=== PATIENT | male | born 1940 | race Caucasian/White ===

== ENCOUNTER → 2024-05-30 13:13 | Outpatient (CLI) | payer OTHER, SELFPAY | LOC: WC 13:18 | PROVIDERS: Family Provider Family Medicine; PCP Family Medicine; Referring Provider Family Medicine; Visit Provider Surgery | DX: E11.621 Type 2 diabetes mellitus with foot ulcer (principal); E11.42 Type 2 diabetes mellitus with diabetic polyneuropathy; L97.312 Non-pressure chronic ulcer of right ankle with fat layer exposed; L97.512 Non-pressure chronic ulcer of other part of right foot with fat layer exposed; L98.8 Other specified disorders of the skin and subcutaneous tissue; I25.10 Atherosclerotic heart disease of native coronary artery without angina pectoris; E66.9 Obesity, unspecified; Z68.35 Body mass index [BMI] 35.0-35.9, adult | CPT/HCPCS: 11042; 87070; 87075; 87077; 87147; 87186; 87205; 99203; 99213 ==

== ENCOUNTER → 2024-06-06 13:16 | Outpatient (CLI) | payer OTHER, SELFPAY ==
[2024-06-06 13:44] LABS: Add Manual Diff / Slide Review NO; Basophils Absolute Auto 0 /uL (0-100); Basophils Percent Auto 0.3 % (0-2); Eosinophils Absolute Auto 400 /uL (0-450); Eosinophils Percent Auto 4.1 % (2-4); Hematocrit 43.7 % (41-53); Hemoglobin 14.5 g/dL (13.5-17.5); Lymphocytes Absolute Auto 1200 /uL (1100-4500); Lymphocytes Percent Auto 12.1 % (25-40); Mean Corpuscular HGB Conc 33.3 % (30-36); Mean Corpuscular Hemoglobin 29.5 PG (26-34); Mean Corpuscular Volume 88.5 fL (80-100); Monocytes Absolute Auto 800 /uL (0-900); Monocytes Percent Auto 7.9 % (3-14); Neutrophils Absolute Auto 7600 /uL (1500-7000); Neutrophils Percent Auto 75.6 % (50-75); Platelet Count 255 X10^3/uL (150-400); Red Blood Cell Count 4.93 X10^6/uL (4.5-5.9); Red Cell Distribution Width 13.4 % (11.6-14.8); White Blood Cell Count 10.1 X10^3/uL (4.5-11.0)
[2024-06-06 13:58] LABS: Hemoglobin A1C% w Est Avg Glu 5.6 % (4.0-6.0)
[2024-06-06 14:09] LABS: Alanine Aminotransferase 22 IU/L (<50); Albumin 4.4 g/dL (3.5-5.0); Albumin Globulin Ratio 1.8 (1.0-2.8); Alkaline Phosphatase 73 U/L (38-126); Aspartate Aminotransferase 26 IU/L (17-59); BUN Creatinine Ratio 18.2 (6-22); Bilirubin Total 0.3 mg/dL (0.2-1.3); Blood Urea Nitrogen 20 mg/dL (9-20); C-Reactive Protein Quant 1.2 mg/dL (<1.0); Calcium 9.8 mg/dL (8.4-10.2); Carbon Dioxide 29 mmol/L (22-32); Chloride 104 mmol/L (98-107); Estimated Glomerular Filt Rate > 60 mL/min (>60); Globulin 2.5 g/dL (1.7-4.1); Glucose 90 mg/dL (80-110); HEMOLYSIS < 15 (0-50); Potassium 4.5 mmol/L (3.4-5.1); Sodium 140 mmol/L (137-145); Total Protein 6.9 g/dL (6.3-8.2)
[2024-06-06 14:13] LABS: Erythrocyte Sedimentation Rate 13 MM/HR (0-15)
== END ==
PROVIDERS: Family Provider Family Medicine; PCP Family Medicine; Referring Provider Surgery; Visit Provider Surgery
DX: L97.312 Non-pressure chronic ulcer of right ankle with fat layer exposed (principal); L89.622 Pressure ulcer of left heel, stage 2; L89.613 Pressure ulcer of right heel, stage 3; R60.0 Localized edema; L53.8 Other specified erythematous conditions; Z79.01 Long term (current) use of anticoagulants
CPT/HCPCS: 11042; 36415; 80053; 83036; 85025; 85651; 86140

== ENCOUNTER → 2024-06-13 13:20 | Outpatient (CLI) | payer OTHER, SELFPAY | PROVIDERS: Family Provider Family Medicine; PCP Family Medicine; Referring Provider Family Medicine; Visit Provider Surgery | DX: E11.621 Type 2 diabetes mellitus with foot ulcer (principal); L97.312 Non-pressure chronic ulcer of right ankle with fat layer exposed; L97.511 Non-pressure chronic ulcer of other part of right foot limited to breakdown of skin; E11.42 Type 2 diabetes mellitus with diabetic polyneuropathy; L53.8 Other specified erythematous conditions | CPT/HCPCS: 11042 ==

== ENCOUNTER → 2024-06-13 13:31 | Outpatient (CLI) | payer OTHER, SELFPAY ==
--- NOTE | 2024-06-13 13:32 | DI.US.S_ITS ---
PROCEDURE: US ARTERIAL DUPLEX LE RT INDICATIONS: non-healing ulcer to right lateral ankle and right 2nd toe TECHNIQUE: Color and pulse Doppler interrogation was performed of the right lower extremity arterial system, with image documentation. COMPARISON: None. FINDINGS: Common femoral artery: 169 cm/sec, with triphasic flow. Deep femoral artery: 133 cm/sec, with biphasic flow. Proximal superficial femoral artery: 112 cm/sec, with triphasic flow. Mid superficial femoral artery: 104 cm/sec, with triphasic flow. Distal superficial femoral artery: 88 cm/sec, with triphasic flow. Popliteal artery: 62 cm/sec, with triphasic flow. Posterior tibial artery: 78 cm/sec, with biphasic flow. Anterior tibial artery/dorsalis pedis: 75 cm/sec, with biphasic flow. Steven-scale imaging description: Moderate degree of calcified and noncalcified plaque throughout the right lower extremity arterial system. Diffuse calcified plaque throughout the tibial arteries. IMPRESSION: No hemodynamically significant stenosis involving the right lower extremity arterial system. Dictated by: Dylan Shine M.D. on 06/14/2024 at 11:12 Approved by: Dylan Shine M.D. on 06/14/2024 at 11:24
== END ==
PROVIDERS: Family Provider Family Medicine; PCP Family Medicine; Referring Provider Surgery; Visit Provider Surgery
DX: E11.621 Type 2 diabetes mellitus with foot ulcer (principal); L97.519 Non-pressure chronic ulcer of other part of right foot with unspecified severity
CPT/HCPCS: 93926

== ENCOUNTER → 2024-06-20 10:21 | Outpatient (CLI) | payer OTHER, SELFPAY | LOC: WC 10:22 | PROVIDERS: Family Provider Family Medicine; PCP Family Medicine; Referring Provider Family Medicine; Visit Provider Surgery | DX: E11.621 Type 2 diabetes mellitus with foot ulcer (principal); L97.312 Non-pressure chronic ulcer of right ankle with fat layer exposed; E11.42 Type 2 diabetes mellitus with diabetic polyneuropathy; L53.8 Other specified erythematous conditions; R60.0 Localized edema | CPT/HCPCS: 11042 ==

== ENCOUNTER → 2024-06-27 09:57 | Outpatient (CLI) | payer OTHER, SELFPAY | LOC: WC 09:57 | PROVIDERS: Family Provider Family Medicine; PCP Family Medicine; Referring Provider Family Medicine; Visit Provider Surgery | DX: E11.621 Type 2 diabetes mellitus with foot ulcer (principal); L97.312 Non-pressure chronic ulcer of right ankle with fat layer exposed; E11.42 Type 2 diabetes mellitus with diabetic polyneuropathy; L53.8 Other specified erythematous conditions; R60.0 Localized edema | CPT/HCPCS: 11042; 99213 ==

== ENCOUNTER → 2024-07-03 14:19 | Outpatient (CLI) | payer OTHER, SELFPAY ==
--- NOTE | 2024-07-03 14:20 | DI.NM.S_ITS ---
PROCEDURE: NM BONE 3 PHASE RADIOPHARMACEUTICAL: 21.1 mCi Tc-99m MDP IV. INDICATIONS: Eval for osteo. Diabetic ulcer of right lateral malleolus. TECHNIQUE: Multiple bone scintigrams were obtained after intravenous injection of Tc-99m MDP, including flow, blood pool, and delayed images centered to the region of interest. COMPARISON: None. FINDINGS: There is decreased radiotracer activity throughout the right foot compared to the left which may be secondary to poor perfusion. No focal areas of increased uptake concerning for osteomyelitis. IMPRESSION: 1. No focal areas of increased uptake concerning for osteomyelitis. 2. Overall, decreased radiotracer activity throughout the right foot compared to the left which may be secondary to poor perfusion. Dictated by: Xiang Ortiz M.D. on 07/04/2024 at 13:02 Approved by: Xiang Ortiz M.D. on 07/04/2024 at 13:05
== END ==
PROVIDERS: Family Provider Family Medicine; PCP Family Medicine; Referring Provider Surgery; Visit Provider Surgery
DX: L97.312 Non-pressure chronic ulcer of right ankle with fat layer exposed (principal)
CPT/HCPCS: 78315; A9503

== ENCOUNTER → 2024-07-04 10:33 | Outpatient (CLI) | payer OTHER, SELFPAY | PROVIDERS: Family Provider Family Medicine; PCP Family Medicine; Referring Provider Family Medicine; Visit Provider Surgery | DX: E11.621 Type 2 diabetes mellitus with foot ulcer (principal); L97.312 Non-pressure chronic ulcer of right ankle with fat layer exposed; E11.42 Type 2 diabetes mellitus with diabetic polyneuropathy; L98.8 Other specified disorders of the skin and subcutaneous tissue; L53.9 Erythematous condition, unspecified; R60.0 Localized edema; Z74.09 Other reduced mobility | CPT/HCPCS: 11042 ==

== ENCOUNTER → 2024-07-11 11:13 | Outpatient (CLI) | payer OTHER, SELFPAY | LOC: WC 11:14 | PROVIDERS: Family Provider Family Medicine; PCP Family Medicine; Referring Provider Family Medicine; Visit Provider Surgery | DX: E11.621 Type 2 diabetes mellitus with foot ulcer (principal); L97.312 Non-pressure chronic ulcer of right ankle with fat layer exposed; E11.40 Type 2 diabetes mellitus with diabetic neuropathy, unspecified; R60.0 Localized edema | CPT/HCPCS: 11042 ==

== ENCOUNTER → 2024-07-18 09:48 | Outpatient (CLI) | payer OTHER, SELFPAY | PROVIDERS: Family Provider Family Medicine; PCP Family Medicine; Referring Provider Family Medicine; Visit Provider Surgery | DX: E11.621 Type 2 diabetes mellitus with foot ulcer (principal); L97.312 Non-pressure chronic ulcer of right ankle with fat layer exposed; L53.8 Other specified erythematous conditions; R60.0 Localized edema; E11.40 Type 2 diabetes mellitus with diabetic neuropathy, unspecified | CPT/HCPCS: 11042 ==

== ENCOUNTER → 2024-07-25 10:10 | Outpatient (CLI) | payer OTHER, SELFPAY ==
--- NOTE | 2024-07-25 | OV.WND_ITS ---
PROGRESS NOTE DETAILS PATIENT NAME: TARIQ CURTIS PATIENT NUMBER: [id number] CLINICIAN: FRANCISCA MEHTA PATIENT DATE OF : 1940 PHYSICIAN / SURGICAL TERRITORY MANAGER: NESTOR FINCH PATIENT SUBJECTIVE CHIEF COMPLAINT THIS INFORMATION WAS OBTAINED FROM THE PATIENT. NO COMPLAINTS, WOUND RIGHT ANKLE ALLERGIES NO KNOWN ALLERGIES HPI THIS INFORMATION WAS OBTAINED FROM THE PATIENT. THE FOLLOWING HPI ELEMENTS WERE DOCUMENTED FOR THE PATIENT'S WOUND: LOCATION: R ANKLE DURATION: 04/29/24 CONTEXT: DFU THE PATIENT IS AN 84-YEAR-OLD MALE WITH DIABETES, OBESITY, CAD, PREVIOUS CVA, AND NEUROPATHY WHO RETURNS TODAY FOR FOLLOW UP OF AN ULCER ON THE LATERAL RIGHT ANKLE. THE PATIENT IS RECEIVING DRESSING CHANGES WITH HEAL WELL GEL EVERY OTHER DAY TO RIGHT ANKLE WITH A FELT SURROUND PAD AND HEEL PROTECTORS FOR PRESSURE OFFLOADING HOWEVER THE ULCER WAS LEFT OPEN TO AIR OVER THE PAST 24 HOURS. THE PATIENT HAS COMPLETED A COURSE OF LEVAQUIN FOLLOWED BY A COURSE OF BACTRIM. HE DENIES HAVING ANY PAIN NOR HAS HE HAD ANY FEVER OR CHILLS. HE CURRENTLY RESIDES AT A SENIOR LIVING FACILITY. THE PATIENT REPORTS A DECREASED APPETITE BUT HE IS TAKING PROTEIN SUPPLEMENTS. HE DENIES HAVING ANY OTHER RECENT CHANGES IN HIS OVERALL HEALTH. PATIENT HAS WEAKNESS IN HIS LOWER EXTREMITIES AND DIFFICULTY AMBULATING THEREFORE USES A WALKER. PAST HISTORY IS REMARKABLE FOR PREVIOUS SURGERY WITH PLACEMENT OF HARDWARE IN THE RIGHT FOOT 7 YEARS AGO. ABIS WERE 1.31. HEMOGLOBIN A1C FROM MARCH 04, 2024 WAS 6.1. X-RAY IMAGES WERE REVIEWED AND THERE IS NO HARDWARE OVER THE RIGHT LATERAL MALLEOLUS. ON EXAM TODAY THE ULCER HAS SLIGHTLY IMPROVED MEASUREMENTS BUT STILL HAS DRIED DRAINAGE, NO SIGN OF INFECTION. BONE SCAN DID NOT SHOW ANY EVIDENCE FOR OSTEOMYELITIS. LABS 07/03/24: BONE SCAN: NO FOCAL AREAS OF INCREASED UPTAKE CONCERNING FOR OSTEOMYELITIS. OVERALL, DECREASED RADIOTRACER ACTIVITY THROUGHOUT THE RIGHT FOOT COMPARED TO THE LEFT WHICH MAY BE SECONDARY TO POOR PERFUSION 06/13/24: ARTERIAL DOPPLER: NO HEMODYNAMICALLY SIGNIFICANT STENOSIS INVOLVING THE RIGHT LOWER EXTREMITY ARTERIAL SYSTEM. 06/06/24: WBC 10.1, HEMOGLOBIN 14.5, HCT 43.7, ELECTROLYTES UNREMARKABLE, GFR GREATER THAN 60, LFTS NORMAL, C-REACTIVE PROTEIN 1.2, HEMOGLOBIN A1C 5.6, ESR 13 05/30/24: CULTURE GREW MRSA 04/26/24: X-RAY RIGHT FOOT REVEALED EXTENSIVE POST SURGICAL CHANGES IN HINDFOOT JOINTS, MODERATE RIGHT FOOT JOINT OSTEOARTHRITIS, NO ACUTE FRACTURE OR DISLOCATION, NO GROSS HARDWARE LOOSENED THING OR FAILURE FAMILY HISTORY TARIQ CURTIS [id number] 1940 THIS INFORMATION WAS OBTAINED FROM THE PATIENT. CANCER- SIBLING DIABETES- SIBLING HYPERTENSION- MOTHER OTHER- FATHER: ALCOHOLISM SOCIAL HISTORY THIS INFORMATION WAS OBTAINED FROM THE PATIENT. FORMER SMOKER: 1 PACK PER DAY X27 YEARS ALCOHOL USE: SOBER X40 YEARS LIVES IN: [facility] MARITAL STATUS: MEDICAL HISTORY THIS INFORMATION WAS OBTAINED FROM THE PATIENT. PATIENT HAS A MEDICAL HISTORY OF: TYPE II DIABETES URINARY INCONTINENCE PARKINSONISM AORTIC ATHEROSCLEROSIS ATHEROSCLEROSIS OF [place] ARTERY OF EXTREMITY PSEUDOPHAKIA (BOTH EYES) SEVERE OBESITY OSTEOARTHRITIS DEGENERATIVE DISC DISEASE RECURRENT MAJOR DEPRESSIVE DISORDER CORONARY ARTERY DISEASE HYPERTENSION HYPERLIPIDEMIA CEREBROVASCULAR ACCIDENT CHAU'S PALSY SLEEP APNEA STROKE TRANSIENT ISCHEMIC ATTACK (TIA) ADDITIONAL INFORMATION DOES PATIENT HAVE A HISTORY OF CANCER? YES? COMPLETE ALL QUESTIONS.: NO SURGICAL HISTORY THIS INFORMATION WAS OBTAINED FROM THE PATIENT. PATIENT HAS A SURGICAL HISTORY OF: HARDWARE TO RIGHT ANKLE- CORONARY ARTERY BYPASS GRAFT (CABG)- SPINAL SURGERY- REVIEW OF SYSTEMS (ROS) THIS INFORMATION WAS OBTAINED FROM THE PATIENT. TARIQ CURTIS [id number] 1940 COMPLAINTS AND SYMPTOMS PATIENT COM PLAINS OF: CARDIOVASCULAR (CENTRAL): DYSPNEA ON EXERTION CO-MORBID CONDITIONS: CORONARY ARTERY DISEASE, DIABETES, NEUROPATHY , OBESITY MUSCULOSKELETAL: ASSISTIVE DEVICES ( WALKER), MUSCLE WEAKNESS NEUROLOGICAL: WEAKNESS PRIOR WOUND HISTORY: DRAINAGE, ERYTHEMA, PAIN PATIENT DENIES COM PLAINTS OR SY M PTOM S RELATED TO: CARDIOVASCULAR (CENTRAL): CHEST PAIN CONSTITUTIONAL SYMPTOMS (GENERAL HEALTH): CHILLS, FEVER, LOSS OF APPETITE, MARKED WEIGHT CHANGE PRIOR WOUND HISTORY: BLEEDING, MALODOR RESPIRATORY: COUGH, SHORTNESS OF BREATH OBJECTIVE VITALS HEIGHT/LENGTH: 70 IN (177.8 CM), WEIGHT: 236.7 LBS (107.59 KGS), BMI: 34, TEMPERATURE: 97.7 ?F (36.5 ?C), PULSE: 72 BPM, RESPIRATORY RATE: 16 BREATHS/MIN, BLOOD PRESSURE: 128/71 MMHG, PULSE OXIMETRY: 94 %. PHYSICAL EXAM CONSTITUTIONAL: VITAL SIGNS REVIEWED AND NOTED. GENERALIZED WEAKNESS. IN NO APPARENT DISTRESS. RESPIRATORY: EVEN RESPIRATIONS WITHOUT USE OF ACCESSORY MUSCLES. NO INTERCOASTAL RETRACTIONS NOTED. EVEN AND NON LABORED RESPIRATION. INTEGUMENTARY (HAIR, SKIN): NO ERYTHEMA. NO SWELLING OR TENDERNESS. SEE WOUND ASSESSMENT. SKIN WARM AND DRY. NO RASHES. NEUROLOGICAL: DECREASED LOWER EXTREMITY SENSATION. PSYCHIATRIC: ORIENTATION TO TIME, PLACE AND PERSON: NORMAL AFFECT WITH NORMAL THOUGHT PATTERN. ADDITIONAL INFORMATION THE PATIENT'S POTENTIAL TO HEAL IS: FAIR. LOWER EXTREMITY ASSESSMENT VASCULAR ASSESSMENT LEFT EXTREMITY COLORS, HAIR GROWTH, AND CONDITIONS: EXTREMITY COLOR: PIGMENTED HAIR GROWTH ON EXTREMITY: NO TEMPERATURE OF EXTREMITY: WARM CAPILARY REFILL: < 3 SECONDS ERYTHEMA: NO RIGHT EXTREMITY COLORS, HAIR GROWTH, AND CONDITIONS: EXTREMITY COLOR: PIGMENTED HAIR GROWTH ON EXTREMITY: NO TEMPERATURE OF EXTREMITY: WARM CAPILARY REFILL: < 3 SECONDS ERYTHEMA: NO WOUND ASSESSMENT(S) WOUND #1 RIGHT, LATERAL MALLEOLUS IS A CHRONIC JUNIOR GRADE 2 DIABETIC ULCER ACQUIRED ON 04/29/2024 TARIQ CURTIS [id number] 1940 AND HAS RECEIVED A STATUS OF NOT HEALED. INITIAL WOUND ENCOUNTER MEASUREMENTS ARE 0.3CM LENGTH X 0.2CM WIDTH X 0.1 CM DEPTH, WITH AN AREA OF 0.06 SQ CM AND A VOLUME OF 0.006 CUBIC CM.INITIAL WOUND ENCOUNTER PREVIOUS MEASUREMENTS FROM 07/18/2024 ARE 0.3CM LENGTH X 0.3CM WIDTH X 0.1CM DEPTH, WITH AN AREA OF 0.09 SQ CM AND A VOLUME OF 0.009 CUBIC CM. ADIPOSE IS EXPOSED. NO TUNNELING HAS BEEN NOTED. NO SINUS TRACT HAS BEEN NOTED. NO UNDERMINING HAS BEEN NOTED. THERE WAS NO DRAINAGE NOTED. THE PATIENT REPORTS A WOUND PAIN OF LEVEL 0/10. THE WOUND MARGIN IS ATTACHED WOUND BED HAS NO, GRANULATION, YES SLOUGH, NO ESCHAR, NO EPITHELIALIZATION. THE PERIWOUND SKIN EXHIBITED EDEMA, MACERATION AND ERYTHEMA. THE PERIWOUND SKIN DID NOT EXHIBIT BRAWNY INDURATION, EXCORIATION, INDURATION, CALLUS, CREPITUS, FLUCTUANCE, RASH, ATROPHIE MAGDALENO, CYANOSIS, ECCHYMOSIS, HEMOSIDEROSIS, PALLOR AND RUBOR. THE PERIWOUND SKIN WAS MOIST. THE PERIWOUND SKIN WAS NOT FRIABLE AND DRY/SCALY. THE TEMPERATURE OF THE PERIWOUND SKIN IS WNL. PERIWOUND SKIN DOES NOT EXHIBIT SIGNS OR SYMPTOMS OF INFECTION. LOCAL PULSE IS PALPABLE. 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 EXPOSED (ENCOUNTER DIAGNOSIS) E11.621 - TYPE 2 DIABETES MELLITUS WITH FOOT ULCER (ENCOUNTER DIAGNOSIS) E11.42 - TYPE 2 DIABETES MELLITUS WITH DIABETIC POLYNEUROPATHY GENERAL NOTES ULCER OVER RIGHT LATERAL MALLEOLUS APPEARS DECORATOR MANNEQUIN, MEASUREMENTS SLIGHTLY IMPROVED, DRIED DRAINAGE THE FOLLOWING FACTORS HAVE BEEN IDENTIFIED THAT MAY AFFECT WOUND HEALING: DEVITALIZED TISSUE BIOFILM INFECTION DIABETES NEUROPATHY POOR MOBILITY ADVANCED AGE PREVIOUS SURGERY WITH HARDWARE GOALS: REMOVED DEVITALIZED TISSUE REMOVE AND PREVENT BIOFILM TREAT INFECTION REDUCE PRESSURE WOUND CLOSURE PREVENT RECURRENCE PLAN: DEBRIDEMENT, CONTINUE DRESSING CHANGES WITH HEAL WELL GEL TO RIGHT ANKLE EVERY DAY WITH FELT SURROUND PAD FOR PRESSURE OFFLOADING, CONTINUE PROTEIN SUPPLEMENTATION, FOLLOW UP IN 2 WEEKS FOR A RECHECK. PROCEDURES WOUND #1 WOUND #1 (DIABETIC ULCER) IS LOCATED ON THE RIGHT, LATERAL MALLEOLUS. A SKIN/SUBCUTANEOUS TISSUE LEVEL SURGICAL DEBRIDEMENT WITH A TOTAL AREA DEBRIDED OF 0.06 SQ CM. WAS PERFORMED BY NESTOR FINCH MD. TARIQ CURTIS [id number] 1940 SUBCUTANEOUS WAS REMOVED ALONG WITH DEVITALIZED TISSUE: BIOFILM, EXUDATE AND SLOUGH. THE FOLLOWING INSTRUMENT(S) WERE USED: CURETTE. PAIN CONTROL WAS ACHIEVED USING EMLA LIDOCAINE/PRILOCAINE 2.5%/2.5%. A TIME OUT WAS CONDUCTED PRIOR TO THE START OF THE PROCEDURE. A MINIMAL AMOUNT OF BLEEDING WAS CONTROLLED WITH PRESSURE. THE PROCEDURE WAS TOLERATED WELL WITH A PAIN LEVEL OF 0 THROUGHOUT AND A PAIN LEVEL OF 0 FOLLOWING THE PROCEDURE. POST DEBRIDEMENT MEASUREMENTS: 0.3CM LENGTH X 0.2CM WIDTH X 0.2CM DEPTH; WITH AN AREA OF 0.06 SQ CM AND A VOLUME OF 0.012 CUBIC CM. ADDITIONAL INFORMATION MUSCLE FASCIA OR BONE REMOVED AND SENT TO PATHOLOGY?: NO PLAN WOUND ORDERS: WOUND #1 RIGHT, LATERAL MALLEOLUS HAND HYGIENE HAND HYGIENE - WASH HANDS BEFORE AND AFTER WOUND CARE. CALL THE WOUND CENTER AT [phone] IF YOU HAVE SIGNS OR SYMPTOMS OF INFECTION, FEVER CHILLS OR SHAKES, INCREASED DRAINAGE, INCREASED ODOR OR UNUSUAL REDNESS. AFTER WOUND CENTER HOURS PLEASE NOTIFY YOUR PCP OR GO TO THE EMERGENCY ROOM. CLEANSER CLEANSE WOUND WITH NORMAL SALINE CLEANSE WOUND AND DANISHA WOUND WITH A NON-CYTOTOXIC WOUND CLEANSER. - VASHE USED IN CLINIC. MAY SHOWER, LEAVE WOUND DRESSING INTACT. COVER WOUND DRESSING WITH A WATERPROOF BARRIER. KEEP DRESSING DRY. NO BATHS PLEASE. PROCEDURE / ANESTHETIC 2% TOPICAL LIDOCAINE TO WOUND BED PRIOR TO PROCEDURE, IN CLINIC ONLY. TOPICAL TREATMENTS APPLY ANTIBIOTIC/ANTIMICROBIAL OINTMENT/CREAM TO THE WOUND BED. - HEALWELL GEL TO WOUND BED, APPLY DAILY. DRESSING ORDERS APPLY DRESSING(S) AND SECURE WITH: - BORDERED GAUZE DRESSING (GENTAC USED IN CLINIC). FELT ADHESIVE PAD SURROUNDING ULCER, MAY STAY IN PLACE ALL WEEK IF NOT SOILED. EXTRA FELT SENT WITH PATIENT IF NEEDED. DRESSING CHANGE FREQUENCY CHANGE DRESSING DAILY. ADDITIONAL ORDERS: OFF-LOADING / PRESSURE RELIEF USE/WEAR WHEN IN BED: - FLOAT ANKLES IN BED. PT TO WEAR ANKLE PROTECTORS WHEN RESTING IN BED OR CHAIR. OTHER ORDER: - KEEP WEIGHT OFF RIGHT ANKLE. DIETARY TAKE VITAMIN C 1000MG BY MOUTH DAILY. TAKE ZINC 25MG BY MOUTH DAILY. FOLLOW A DIABETIC DIET. INCREASE THE PROTEIN IN YOUR DIET. - AIM FOR ADDITIONAL 30 GRAMS BETWEEN MEALS. OTHER ORDER: - KONRAD, GLUCERNA OR EQUIVALENT PROTEIN SUPPLEMENT. FOLLOW-UP APPOINTMENTS RETURN APPOINTMENT 2 WEEKS SCRIBING ATTESTATION I ATTEST, THE NURSE, THAT I SCRIBED THESE ORDERS FOR THE WOUND CARE PROVIDER. PROVIDER REVIEW AND ATTESTATION: REVIEWED AND EVALUATED LABS. REVIEWED HOSPITAL RECORDS. DISCUSSED THE PLAN OF CARE @ BEDSIDE WITH - THE PATIENT AND I AGREE AND ATTEST TO THE ABOVE INFORMATION PROVIDED FROM OTHER LICENSED PROFESSIONALS. PLAN OF CARE: 01. ENSURE/ESTABLISH OPTIMAL BLOOD FLOW : TARIQ CURTIS [id number] 1940 - COMPLETE LOWER EXTREMITY ASSESSMENT STATUS: CONTINUED DATE: 07/11/2024 - PERFORM NON-INVASIVE VASCULAR TESTING (I.E. NORA) AND DOCUMENT FINDINGS. CONSIDER REPEATING WHEN WOUND HEALING <40% AFTER 30 DAYS OF WOUND CARE. - ARTERIAL ULTRASOUND ORDERED 06/06/24 STATUS: COMPLETED DATE: 05/30/2024 02. ASSESS FOR/TREAT INFECTION : - EVALUATE FOR SIGNS AND SYMPTOMS OF INFECTION AND DOCUMENT FINDINGS. STATUS: CONTINUED DATE: 07/11/2024 - OBTAIN CULTURE AND SENSITIVITY (CANDS) OR TISSUE CULTURE WHEN INFECTION IS SUSPECTED. (NOTE:) CONSIDER REPEATING WHEN WOUND HEALING <40% AFTER 30 DAYS OF WOUND CARE. STATUS: COMPLETED DATE: 07/11/2024 03. DEBRIDE WEEKLY OR MORE OFTEN PRN : - EVALUATE PATIENT IN CENTER WEEKLY TO ASSESS WOUND BED AND MARGINS FOR NEED FOR DEBRIDEMENT. STATUS: CONTINUED DATE: 07/11/2024 04. OPTIMIZE GLUCOSE CONTROL AND NUTRITION : - ORDER/REVIEW PERTINENT LABS TO EVALUATE RENAL FUNCTION, GLUCOSE CONTROL, AND NUTRITIONAL STATUS. STATUS: CONTINUED DATE: 07/11/2024 05. OFFLOADING PLAN : - EVALUATE PLAN FOR OFFLOADING STATUS: CONTINUED DATE: 07/11/2024 - ADVISE PATIENT TO OFFLOAD THE FOOT ULCER. (I.E. HALF SHOE, SURGICAL SHOE, INSERT, CUSTOM SHOE, FELT AND FOAM, CAM WALKER, MULTIPODUS SPLINT, TOTAL CONTACT CAST, BI-VALVE CAST, POSTERIOR SPLINT). STATUS: CONTINUED DATE: 07/11/2024 - ORDER/REVIEW RADIOLOGY TESTS FOR SUSPECTED INFECTION, SIGNIFICANT FINDINGS, OR WHEN STRUCTURE PRESENT AND/OR ULCER LOCATED OVER BONY PROMINENCE. 06. OPTIMIZE HOST FACTORS: - ASSESS AND REVIEW PATIENT HISTORY FOR WOUND ETIOLOGY, CO-MORBID CONDITIONS, MEDICATION REGIME, AND SMOKING HISTORY. STATUS: CONTINUED DATE: 07/11/2024 07. DRESSING SELECTION : - CHOOSE TOPICAL TREATMENTS AND/OR DRESSING BASED ON WOUND TYPE AND APPEARANCE, PERIWOUND SKIN CONDITION, WOUND SIZE AND DEPTH, ANATOMIC LOCATION, VOLUME OF EXUDATE, EDEMA IN THE LOWER EXTREMITIES, AND RISK OR PRESENCE OF INFECTION. STATUS: CONTINUED DATE: 07/11/2024 08. ADVANCED MODALITIES : - RE-EVALUATE PLAN OF CARE IF NO EVIDENCE OF HEALING (40% IN 4 WEEKS). STATUS: CONTINUED DATE: 07/11/2024 09. FALL PREVENTION : - COMPLETE FALL ASSESSMENT. STATUS: COMPLETED DATE: 07/11/2024 10. PAIN MANAGEMENT : - COMPLETE PAIN ASSESSMENT STATUS: COMPLETED DATE: 07/11/2024 11. MEASURABLE GOALS FOR WOUND HEALING AND/OR HYPERBARIC OXYGEN THERAPY : - IMPLEMENT PROTOCOLS TO PROMOTE HEALING AND IMPEDE FURTHER INJURY STATUS: CONTINUED DATE: 07/11/2024 12. DURATION/FREQUENCY OF WOUND CARE VISITS : - 1X WEEKLY FOR 30 DAYS STATUS: CONTINUED DATE: 07/11/2024 TARIQ CURTIS [id number] 1940 ELECTRONIC SIGNATURE(S) SIGNED BY: DATE: NESTOR FINCH MD 07/25/2024 16:19:22 (PT) ENTERED BY: NESTOR FINCH MD ON 07/25/2024 16:03:39 (PT) TARIQ CURTIS [id number] 1940
== END ==
PROVIDERS: Family Provider Family Medicine; PCP Family Medicine; Referring Provider Family Medicine; Visit Provider Surgery
DX: L97.312 Non-pressure chronic ulcer of right ankle with fat layer exposed (principal); E11.621 Type 2 diabetes mellitus with foot ulcer; E11.42 Type 2 diabetes mellitus with diabetic polyneuropathy; L53.9 Erythematous condition, unspecified; R60.0 Localized edema; Z74.09 Other reduced mobility; I25.10 Atherosclerotic heart disease of native coronary artery without angina pectoris
CPT/HCPCS: 11042; 99213

== ENCOUNTER → 2024-08-08 10:43 | Outpatient (CLI) | payer OTHER, SELFPAY ==
--- NOTE | 2024-08-08 | OV.WND_ITS ---
PROGRESS NOTE DETAILS PATIENT NAME: TARIQ CURTIS PATIENT NUMBER: [id number] CLINICIAN: PATRICE UNGER R.N. PATIENT DATE OF : 1940 PHYSICIAN / AIRCRAFT STRUCTURAL REPAIRER: NESTOR FINCH PATIENT SUBJECTIVE CHIEF COMPLAINT THIS INFORMATION WAS OBTAINED FROM THE PATIENT. WOUND ON MY ANKLE. GENERAL NOTES RIGHT MALLEOLUS DIABETIC ULCER. ALLERGIES NO KNOWN ALLERGIES HPI THIS INFORMATION WAS OBTAINED FROM THE PATIENT. THE FOLLOWING HPI ELEMENTS WERE DOCUMENTED FOR THE PATIENT'S WOUND: LOCATION: R ANKLE DURATION: 04/29/24 CONTEXT: DFU THE PATIENT IS AN 84-YEAR-OLD MALE WITH DIABETES, OBESITY, CAD, PREVIOUS CVA, AND NEUROPATHY WHO RETURNS TODAY FOR FOLLOW UP OF AN ULCER ON THE LATERAL RIGHT ANKLE. THE PATIENT IS RECEIVING DRESSING CHANGES WITH HEAL WELL GEL EVERY OTHER DAY TO RIGHT ANKLE WITH A FELT SURROUND PAD AND HEEL PROTECTORS FOR PRESSURE OFFLOADING. THE PATIENT HAS COMPLETED A COURSE OF LEVAQUIN FOLLOWED BY A COURSE OF BACTRIM. HE DENIES HAVING ANY PAIN NOR HAS HE HAD ANY FEVER OR CHILLS. HE CURRENTLY RESIDES AT A [facility] FACILITY. THE PATIENT REPORTS A DECREASED APPETITE BUT HE IS TAKING PROTEIN SUPPLEMENTS. HE DENIES HAVING ANY OTHER RECENT CHANGES IN HIS OVERALL HEALTH. PATIENT HAS WEAKNESS IN HIS LOWER EXTREMITIES AND DIFFICULTY AMBULATING THEREFORE USES A WALKER. PAST HISTORY IS REMARKABLE FOR PREVIOUS SURGERY WITH PLACEMENT OF HARDWARE IN THE RIGHT FOOT 7 YEARS AGO. ABIS WERE 1.31. HEMOGLOBIN A1C FROM MARCH 04, 2024 WAS 6.1. X-RAY IMAGES WERE REVIEWED AND THERE IS NO HARDWARE OVER THE RIGHT LATERAL MALLEOLUS. ON EXAM TODAY THE ULCER HAS SLIGHTLY LARGER MEASUREMENTS AND HAS DRIED DRAINAGE, NO SIGN OF INFECTION. BONE SCAN DID NOT SHOW ANY EVIDENCE FOR OSTEOMYELITIS. LABS 07/03/24: BONE SCAN: NO FOCAL AREAS OF INCREASED UPTAKE CONCERNING FOR OSTEOMYELITIS. OVERALL, DECREASED RADIOTRACER ACTIVITY THROUGHOUT THE RIGHT FOOT COMPARED TO THE LEFT WHICH MAY BE SECONDARY TO POOR PERFUSION 06/13/24: ARTERIAL DOPPLER: NO HEMODYNAMICALLY SIGNIFICANT STENOSIS INVOLVING THE RIGHT LOWER EXTREMITY ARTERIAL SYSTEM. 06/06/24: WBC 10.1, HEMOGLOBIN 14.5, HCT 43.7, ELECTROLYTES UNREMARKABLE, GFR GREATER THAN 60, LFTS NORMAL, C-REACTIVE PROTEIN 1.2, HEMOGLOBIN A1C 5.6, ESR 13 05/30/24: CULTURE GREW MRSA 04/26/24: X-RAY RIGHT FOOT REVEALED EXTENSIVE POST SURGICAL CHANGES IN HINDFOOT JOINTS, MODERATE RIGHT FOOT JOINT OSTEOARTHRITIS, NO ACUTE FRACTURE OR DISLOCATION, NO GROSS HARDWARE LOOSENED THING OR FAILURE TARIQ CURTIS [id number] 1940 MEDICAL HISTORY THIS INFORMATION WAS OBTAINED FROM THE PATIENT. 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 YES? COMPLETE ALL QUESTIONS.: NO SURGICAL HISTORY THIS INFORMATION WAS OBTAINED FROM THE PATIENT. PATIENT HAS A SURGICAL HISTORY OF: HARDWARE TO RIGHT ANKLE- CORONARY ARTERY BYPASS GRAFT (CABG)- SPINAL SURGERY- OBJECTIVE VITALS HEIGHT/LENGTH: 70 IN (177.8 CM), WEIGHT: 236.7 LBS (107.59 KGS), BMI: 34, TEMPERATURE: 98.4 ?F (36.89 ?C), PULSE: 57 BPM, RESPIRATORY RATE: 16 BREATHS/MIN, BLOOD PRESSURE: 140/89 MMHG, PULSE OXIMETRY: 98 %. PHYSICAL EXAM CONSTITUTIONAL: VITAL SIGNS REVIEWED AND NOTED. GENERALIZED WEAKNESS. IN NO APPARENT DISTRESS. RESPIRATORY: EVEN RESPIRATIONS WITHOUT USE OF ACCESSORY MUSCLES. NO INTERCOASTAL RETRACTIONS NOTED. EVEN AND NON LABORED RESPIRATION. INTEGUMENTARY (HAIR, SKIN): NO ERYTHEMA. MILD PERIWOUND TENDERNESS, NO SWELLING. SEE WOUND ASSESSMENT. SKIN WARM AND DRY. NO RASHES. TARIQ CURTIS [id number] 1940 NEUROLOGICAL: DECREASED LOWER EXTREMITY SENSATION. PSYCHIATRIC: ORIENTATION TO TIME, PLACE AND PERSON: NORMAL AFFECT WITH NORMAL THOUGHT PATTERN. ADDITIONAL INFORMATION THE PATIENT'S POTENTIAL TO HEAL IS: FAIR. WOUND ASSESSMENT(S) WOUND #1 RIGHT, LATERAL MALLEOLUS IS A CHRONIC JUNIOR GRADE 2 DIABETIC ULCER ACQUIRED ON 04/29/2024 AND HAS RECEIVED A STATUS OF NOT HEALED. INITIAL WOUND ENCOUNTER MEASUREMENTS ARE 0.4CM LENGTH X 0.3CM WIDTH X 0.1 CM DEPTH, WITH AN AREA OF 0.12 SQ CM AND A VOLUME OF 0.012 CUBIC CM.INITIAL WOUND ENCOUNTER PREVIOUS MEASUREMENTS FROM 07/25/2024 ARE 0.3CM LENGTH X 0.2CM WIDTH X 0.1CM DEPTH, WITH AN AREA OF 0.06 SQ CM AND A VOLUME OF 0.006 CUBIC CM. ADIPOSE IS EXPOSED. NO TUNNELING HAS BEEN NOTED. NO SINUS TRACT HAS BEEN NOTED. NO UNDERMINING HAS BEEN NOTED. THERE WAS NO DRAINAGE NOTED. THE PATIENT REPORTS A WOUND PAIN OF LEVEL 0/10. THE WOUND MARGIN IS ATTACHED WOUND BED HAS NO, GRANULATION, YES SLOUGH, NO ESCHAR, NO EPITHELIALIZATION. THE PERIWOUND SKIN EXHIBITED EDEMA AND ERYTHEMA. THE PERIWOUND SKIN DID NOT EXHIBIT BRAWNY INDURATION, EXCORIATION, INDURATION, CALLUS, CREPITUS, FLUCTUANCE, RASH, MACERATION, ATROPHIE MAGDALENO, CYANOSIS, ECCHYMOSIS, HEMOSIDEROSIS, PALLOR AND RUBOR. THE PERIWOUND SKIN WAS NOT FRIABLE, DRY/SCALY AND MOIST. THE TEMPERATURE OF THE PERIWOUND SKIN IS WNL. PERIWOUND SKIN DOES NOT EXHIBIT SIGNS OR SYMPTOMS OF INFECTION. LOCAL PULSE IS PALPABLE. 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 EXPOSED (ENCOUNTER DIAGNOSIS) E11.621 - TYPE 2 DIABETES MELLITUS WITH FOOT ULCER (ENCOUNTER DIAGNOSIS) E11.42 - TYPE 2 DIABETES MELLITUS WITH DIABETIC POLYNEUROPATHY GENERAL NOTES ULCER OVER RIGHT LATERAL MALLEOLUS, MEASUREMENTS SLIGHTLY LARGER, DRIED DRAINAGE THE FOLLOWING FACTORS HAVE BEEN IDENTIFIED THAT MAY AFFECT WOUND HEALING: DEVITALIZED TISSUE BIOFILM INFECTION DIABETES NEUROPATHY POOR MOBILITY ADVANCED AGE PREVIOUS SURGERY WITH HARDWARE GOALS: REMOVED DEVITALIZED TISSUE REMOVE AND PREVENT BIOFILM TREAT INFECTION REDUCE PRESSURE WOUND CLOSURE PREVENT RECURRENCE PLAN: TARIQ CURTIS [id number] 1940 DEBRIDEMENT, SWITCH TO DRESSING CHANGES WITH SILVER COLLAGEN WITH FELT SURROUND PAD FOR PRESSURE OFF LOADING, CONTINUE PROTEIN SUPPLEMENTATION, FOLLOW UP IN 1 WEEK FOR A RECHECK. PROCEDURES WOUND #1 WOUND #1 (DIABETIC ULCER) IS LOCATED ON THE RIGHT, LATERAL MALLEOLUS. A SKIN/SUBCUTANEOUS TISSUE LEVEL SURGICAL DEBRIDEMENT WITH A TOTAL AREA DEBRIDED OF 0.12 SQ CM. WAS PERFORMED BY NESTOR FINCH MD. SUBCUTANEOUS WAS REMOVED ALONG WITH DEVITALIZED TISSUE: BIOFILM, EXUDATE AND SLOUGH. THE FOLLOWING INSTRUMENT(S) WERE USED: CURETTE. PAIN CONTROL WAS ACHIEVED USING EMLA LIDOCAINE/PRILOCAINE 2.5%/2.5%. A TIME OUT WAS CONDUCTED PRIOR TO THE START OF THE PROCEDURE. A MINIMAL AMOUNT OF BLEEDING WAS CONTROLLED WITH PRESSURE. THE PROCEDURE WAS TOLERATED WELL WITH A PAIN LEVEL OF 0 THROUGHOUT AND A PAIN LEVEL OF 0 FOLLOWING THE PROCEDURE. POST DEBRIDEMENT MEASUREMENTS: 0.4CM LENGTH X 0.3CM WIDTH X 0.2CM DEPTH; WITH AN AREA OF 0.12 SQ CM AND A VOLUME OF 0.024 CUBIC CM. ADDITIONAL INFORMATION MUSCLE FASCIA OR BONE REMOVED AND SENT TO PATHOLOGY?: NO PLAN WOUND ORDERS: WOUND #1 RIGHT, LATERAL MALLEOLUS HAND HYGIENE HAND HYGIENE - WASH HANDS BEFORE AND AFTER WOUND CARE. CALL THE WOUND CENTER AT [phone] IF YOU HAVE SIGNS OR SYMPTOMS OF INFECTION, FEVER CHILLS OR SHAKES, INCREASED DRAINAGE, INCREASED ODOR OR UNUSUAL REDNESS. AFTER WOUND CENTER HOURS PLEASE NOTIFY YOUR PCP OR GO TO THE EMERGENCY ROOM. CLEANSER CLEANSE WOUND WITH NORMAL SALINE CLEANSE WOUND AND DANISHA WOUND WITH A NON-CYTOTOXIC WOUND CLEANSER. - VASHE USED IN CLINIC. MAY SHOWER, LEAVE WOUND DRESSING INTACT. COVER WOUND DRESSING WITH A WATERPROOF BARRIER. KEEP DRESSING DRY. NO BATHS PLEASE. PROCEDURE / ANESTHETIC 2% TOPICAL LIDOCAINE TO WOUND BED PRIOR TO PROCEDURE, IN CLINIC ONLY. DRESSING ORDERS APPLY DRESSING(S) AND SECURE WITH: - PURACOL PLUS AG MOISTENED WITH NORMAL SALINE OR DISTILLED WATER UNTIL CLEAR, COVER WITH BORDERED SILICONE FOAM. FELT ADHESIVE PAD SURROUNDING ULCER, MAY STAY IN PLACE ALL WEEK IF NOT SOILED. EXTRA FELT SENT WITH PATIENT IF NEEDED. DRESSING CHANGE FREQUENCY CHANGE DRESSING EVERY OTHER DAY. CHANGE DRESSING IF IT BECOMES SOILED OR WET. ADDITIONAL ORDERS: OFF-LOADING / PRESSURE RELIEF USE/WEAR WHEN IN BED: - FLOAT ANKLES IN BED. PT TO WEAR ANKLE PROTECTORS WHEN RESTING IN BED OR CHAIR. OTHER ORDER: - KEEP WEIGHT OFF RIGHT ANKLE. DIETARY TAKE VITAMIN C 1000MG BY MOUTH DAILY. TAKE ZINC 25MG BY MOUTH DAILY. FOLLOW A DIABETIC DIET. INCREASE THE PROTEIN IN YOUR DIET. - AIM FOR ADDITIONAL 30 GRAMS BETWEEN MEALS. OTHER ORDER: - KONRAD, GLUCERNA OR EQUIVALENT PROTEIN SUPPLEMENT. FOLLOW-UP APPOINTMENTS RETURN APPOINTMENT 1 WEEK OTHER ORDERS: - PLEASE PLACE MO SLING UNDER PATIENT IN WHEELCHAIR PRIOR TO EACH WOUND CARE TARIQ CURTIS [id number] 1940 APPOINTMENT, THIS WILL ASSIST OUR STAFF IN TRANSFERRING TO EXAM CHAIR. SCRIBING ATTESTATION I ATTEST, THE NURSE, THAT I SCRIBED THESE ORDERS FOR THE WOUND CARE PROVIDER. PROVIDER REVIEW AND ATTESTATION: REVIEWED AND EVALUATED LABS. REVIEWED HOSPITAL RECORDS. DISCUSSED THE PLAN OF CARE @ BEDSIDE WITH - THE PATIENT AND I AGREE AND ATTEST TO THE ABOVE INFORMATION PROVIDED FROM OTHER LICENSED PROFESSIONALS. PLAN OF CARE: 01. ENSURE/ESTABLISH OPTIMAL BLOOD FLOW : - COMPLETE LOWER EXTREMITY ASSESSMENT STATUS: CONTINUED DATE: 07/25/2024 - PERFORM NON-INVASIVE VASCULAR TESTING (I.E. NORA) AND DOCUMENT FINDINGS. CONSIDER REPEATING WHEN WOUND HEALING <40% AFTER 30 DAYS OF WOUND CARE. - ARTERIAL ULTRASOUND ORDERED 06/06/24 STATUS: COMPLETED DATE: 05/30/2024 02. ASSESS FOR/TREAT INFECTION : - EVALUATE FOR SIGNS AND SYMPTOMS OF INFECTION AND DOCUMENT FINDINGS. STATUS: CONTINUED DATE: 07/25/2024 - OBTAIN CULTURE AND SENSITIVITY (CANDS) OR TISSUE CULTURE WHEN INFECTION IS SUSPECTED. (NOTE:) CONSIDER REPEATING WHEN WOUND HEALING <40% AFTER 30 DAYS OF WOUND CARE. STATUS: COMPLETED DATE: 07/11/2024 03. DEBRIDE WEEKLY OR MORE OFTEN PRN : - EVALUATE PATIENT IN CENTER WEEKLY TO ASSESS WOUND BED AND MARGINS FOR NEED FOR DEBRIDEMENT. STATUS: CONTINUED DATE: 07/25/2024 04. OPTIMIZE GLUCOSE CONTROL AND NUTRITION : - ORDER/REVIEW PERTINENT LABS TO EVALUATE RENAL FUNCTION, GLUCOSE CONTROL, AND NUTRITIONAL STATUS. STATUS: CONTINUED DATE: 07/25/2024 05. OFFLOADING PLAN : - EVALUATE PLAN FOR OFFLOADING STATUS: CONTINUED DATE: 07/25/2024 - ADVISE PATIENT TO OFFLOAD THE FOOT ULCER. (I.E. HALF SHOE, SURGICAL SHOE, INSERT, CUSTOM SHOE, FELT AND FOAM, CAM WALKER, MULTIPODUS SPLINT, TOTAL CONTACT CAST, BI-VALVE CAST, POSTERIOR SPLINT). STATUS: CONTINUED DATE: 06/27/2024 - ORDER/REVIEW RADIOLOGY TESTS FOR SUSPECTED INFECTION, SIGNIFICANT FINDINGS, OR WHEN STRUCTURE PRESENT AND/OR ULCER LOCATED OVER BONY PROMINENCE. STATUS: CONTINUED DATE: 07/25/2024 06. OPTIMIZE HOST FACTORS: - ASSESS AND REVIEW PATIENT HISTORY FOR WOUND ETIOLOGY, CO-MORBID CONDITIONS, MEDICATION REGIME, AND SMOKING HISTORY. STATUS: CONTINUED DATE: 07/25/2024 07. DRESSING SELECTION : - CHOOSE TOPICAL TREATMENTS AND/OR DRESSING BASED ON WOUND TYPE AND APPEARANCE, PERIWOUND SKIN CONDITION, WOUND SIZE AND DEPTH, ANATOMIC LOCATION, VOLUME OF EXUDATE, EDEMA IN THE LOWER EXTREMITIES, AND RISK OR PRESENCE OF INFECTION. STATUS: CONTINUED DATE: 07/25/2024 08. ADVANCED MODALITIES : - RE-EVALUATE PLAN OF CARE IF NO EVIDENCE OF HEALING (40% IN 4 WEEKS). STATUS: CONTINUED DATE: 07/25/2024 09. FALL PREVENTION : - COMPLETE FALL ASSESSMENT. STATUS: COMPLETED DATE: 07/11/2024 TARIQ CURTIS [id number] 1940 10. PAIN MANAGEMENT : - COMPLETE PAIN ASSESSMENT STATUS: COMPLETED DATE: 07/11/2024 11. MEASURABLE GOALS FOR WOUND HEALING AND/OR HYPERBARIC OXYGEN THERAPY : - IMPLEMENT PROTOCOLS TO PROMOTE HEALING AND IMPEDE FURTHER INJURY STATUS: CONTINUED DATE: 07/25/2024 12. DURATION/FREQUENCY OF WOUND CARE VISITS : - 1X WEEKLY FOR 30 DAYS STATUS: CONTINUED DATE: 06/27/2024 ELECTRONIC SIGNATURE(S) SIGNED BY: DATE: NESTOR FINCH MD 08/08/2024 15:50:59 (PT) ENTERED BY: NESTOR FINCH MD ON 08/08/2024 12:49:10 (PT) TARIQ CURTIS [id number] 1940
== END ==
PROVIDERS: Family Provider Family Medicine; PCP Family Medicine; Referring Provider Family Medicine; Visit Provider Surgery
DX: E11.621 Type 2 diabetes mellitus with foot ulcer (principal); L97.312 Non-pressure chronic ulcer of right ankle with fat layer exposed; E11.40 Type 2 diabetes mellitus with diabetic neuropathy, unspecified; L53.8 Other specified erythematous conditions; R60.0 Localized edema
CPT/HCPCS: 11042

== ENCOUNTER → 2024-08-15 13:52 | Outpatient (CLI) | payer OTHER, SELFPAY | PROVIDERS: Family Provider Family Medicine; PCP Family Medicine; Referring Provider Family Medicine; Visit Provider Surgery | DX: E11.42 Type 2 diabetes mellitus with diabetic polyneuropathy (principal); R60.0 Localized edema; L53.9 Erythematous condition, unspecified | CPT/HCPCS: 99212; 99213 ==

== ENCOUNTER → 2024-08-29 15:28 | Outpatient (CLI) | payer OTHER, SELFPAY | PROVIDERS: Visit Provider Surgery | DX: E11.621 Type 2 diabetes mellitus with foot ulcer (principal); L97.312 Non-pressure chronic ulcer of right ankle with fat layer exposed; E11.42 Type 2 diabetes mellitus with diabetic polyneuropathy; R60.0 Localized edema; L53.8 Other specified erythematous conditions; Z86.73 Personal history of transient ischemic attack (TIA), and cerebral infarction without residual deficits | CPT/HCPCS: 97597; 99213 ==

== ENCOUNTER → 2024-09-12 13:36 | Outpatient (CLI) | payer OTHER, SELFPAY | LOC: WC 13:37 | PROVIDERS: Visit Provider Surgery | DX: E11.621 Type 2 diabetes mellitus with foot ulcer (principal); L97.312 Non-pressure chronic ulcer of right ankle with fat layer exposed; E11.42 Type 2 diabetes mellitus with diabetic polyneuropathy; L53.8 Other specified erythematous conditions; R60.0 Localized edema | CPT/HCPCS: 11042 ==

== ENCOUNTER → 2024-09-26 10:18 | Outpatient (CLI) | payer OTHER, SELFPAY | LOC: WC 10:26 | PROVIDERS: Visit Provider Surgery | DX: E11.622 Type 2 diabetes mellitus with other skin ulcer (principal); E11.42 Type 2 diabetes mellitus with diabetic polyneuropathy; L97.312 Non-pressure chronic ulcer of right ankle with fat layer exposed; R60.0 Localized edema; L53.9 Erythematous condition, unspecified | CPT/HCPCS: 11042; 99213 ==

== ENCOUNTER → 2024-10-10 10:41 | Outpatient (CLI) | payer OTHER, SELFPAY | PROVIDERS: Visit Provider Surgery | DX: Z86.31 Personal history of diabetic foot ulcer (principal); R60.0 Localized edema | CPT/HCPCS: 99213 ==